=== PATIENT | male | born 1950 | race Caucasian/White ===

== ENCOUNTER → 2017-10-02 | Outpatient (CLI) | payer OTHER | LOC: FIMAGING 13:02 | PROVIDERS: ATTEND Internal Medicine | DX: N44.2 Benign cyst of testis (principal); N50.3 Cyst of epididymis ==

== ENCOUNTER 2018-06-21 08:58 | Observation (INO) | payer OTHER ==
[2018-06-21] MEDS ORDERED: ASPIRIN EC 325 MG TAB PO ONE ×2 (08:59→09:07)
[2018-06-21] MEDS ORDERED: DIAZEPAM 5 MG TAB PO ONE (08:59)
[2018-06-21] MEDS ORDERED: FAMOTIDINE 20 MG TAB PO ONE (08:59)
[2018-06-21] MEDS ORDERED: NS 1,000 ML IV ONE (08:59)
[2018-06-21] MEDS ORDERED: diphenhydrAMINE 25 MG CAP PO ONE ×2 (08:59→09:07)
[2018-06-21] MEDS ORDERED: FAMOTIDINE 20 MG TAB ONE (09:07)
[2018-06-21] MEDS ORDERED: DIAZEPAM 5 MG TAB ONE (09:08)
[2018-06-21 09:30] LABS: PLATELET COUNT 182 10^3/uL (150-400)
[2018-06-21 09:52] LABS: INR 1.08 (0.83-1.16); PROTIME(PATIENT) 13.6 SEC (12.0-15.0)
[2018-06-21] MEDS ORDERED: LIDOCAINE 1% 300 MG/30 ML SDV ONE (10:00)
[2018-06-21] MEDS ORDERED: MIDAZOLAM 2 MG/2 ML VIAL ONE ×3 (10:00→11:21)
[2018-06-21] MEDS ORDERED: fentaNYL 100 MCG/2 ML INJ ONE (10:00)
[2018-06-21] MEDS ORDERED: VERAPAMIL 5 MG/2 ML VIAL ONE (10:00)
[2018-06-21] MEDS ORDERED: IOPAMIDOL (ISOVUE-370) 150 ML BTL IV ONE (10:01)
[2018-06-21] MEDS ORDERED: HEPARIN 10,000 UNIT/10 ML MDV (1,000 UNIT/ML) ONE ×2 (10:01→11:40)
--- NOTE | 2018-06-21 10:30 | PDPROPOC ---
Sedation Plan of Care Sedation Plan of Care: vital signs stable, mental status noted, patient educated of risks, benefits, alternatives, patient can tolerate sedation ASA Classification: ASA 3 Planned drugs: fentanyl, midazolam Mallampati Score: Class 2 Mallampati Reference Image: Patient passed 3-3-2 rule?: Yes
--- NOTE | 2018-06-21 10:30 | PDHPUP ---
History & Physical Update H&P update statement: This history and physical update is based on an assessment of the patient which was completed after admission or registration (within 24 hours), but prior to the surgery/procedure. H&P update: H&P reviewed & patient examined, no change in patient's condition since H&P completed
[2018-06-21] MEDS ORDERED: ETOMIDATE 40 MG/20 ML INJ ONE (10:56)
[2018-06-21] MEDS ORDERED: niCARdipine 25 MG/10 ML VIAL IV ONE (11:36)
[2018-06-21] MEDS ORDERED: ATROPINE SULFATE 1 MG/10 ML SYR ONE (11:38)
[2018-06-21] MEDS ORDERED: IBUPROFEN 200 MG TAB PO PRN (11:48)
[2018-06-21] MEDS ORDERED: PRASUGREL HCL 10 MG TAB ONE (11:49)
[2018-06-21] MEDS ORDERED: OXYCODONE/APAP 5/325 TAB PO PRN (11:50)
[2018-06-21] MEDS ORDERED: NITROGLYCERIN 0.4 MG BTL SL PRN (11:50)
[2018-06-21] MEDS ORDERED: LORazepam 2 MG/ML INJ IVP PRN (11:50)
[2018-06-21] MEDS ORDERED: PRASUGREL HCL 10 MG TAB PO ONE (11:50)
[2018-06-21] MEDS ORDERED: TEMAZEPAM 15 MG CAP PO PRN (11:50)
[2018-06-21] MEDS ORDERED: ONDANSETRON 4 MG/2 ML VIAL IVP PRN (11:50)
[2018-06-21] MEDS ORDERED: ATROPINE SULFATE 1 MG/10 ML SYR IVP PRN (11:50)
[2018-06-21] MEDS ORDERED: HYDROCODONE/APAP 5/325 TAB PO PRN (11:50)
[2018-06-21] MEDS ORDERED: NS 1,000 ML IV SCH (12:00)
--- NOTE | 2018-06-21 12:36 | CPIP ---
[f rep st] INVASIVE CARDIAC PROCEDURE DATE OF PROCEDURE: 06/21/2018 PROCEDURES PERFORMED: 1. Selective coronary angiography. 2. Left heart catheterization. 3. Left ventriculogram. 4. Percutaneous transluminal coronary angioplasty and stent placement of the distal right coronary a rtery with the use of a 4.0 x 12 Synergy drug-eluting stent. Percutaneous transluminal coronary iva oplasty and stent placement of the proximal right coronary artery with the use of a 4.0 x 16 drug-elu ting stent. The distal lesion stenosis was 85% pre-stent implantation with 0% residual post stent. The proximal obstruction was 70% prior to the stent and 0% residual stenosis post stent. In the prox imal lesion there was MELA-1 flow prior to the stent and MELA-3 post. There was MELA-3 flow previous to the first stent in the distal vessel and MELA-1 post stent implantation. Ultimately, the flow in the vessel was MELA-3 throughout and normal. 5. TR band arteriotomy repair. COMPLICATIONS: None. PROCEDURE IN DETAIL: After informed consent was obtained, n.p.o. status was confirmed, the region of the right wrist of the right wrist was cleaned, prepped, and draped in sterile fashion. A plethysmo graphy and trace assisted Burak's test was performed documenting a dual arterial supply to the right index finger. A 5-Canadian sheath was placed to right radial artery with single anterior puncture of t he vessel. The patient then underwent the previously mentioned diagnostic procedure with use of JR4 and L3.5 curve catheters. Standard wire exchange technique was utilized for all catheter exchanges. The right coronary artery is dominant, gives rise to the posterior descending and posterolateral vent ricular branch. There is a 70% obstruction of the proximal RCA and an 85% obstruction of the distal RCA via QCA analysis. There is MELA-3 flow to the distal vessel. The left main coronary lumen is ap proximately 5 mm in size and trifurcates into an LAD, ramus, and circumflex system. The LAD arises i n its usual location, and is approximately 4 mm in size. Distal to the 1st septal branch, there is a 30% obstruction of the LAD proper. There is excellent MELA-3 flow to the distal vessel, which does reach the cardiac apex. The ramus vessel is 1.5 mm in size and relatively long and is free of flow-l imiting disease. It may be a high obtuse marginal vessel, but is certainly a functional ramus vessel giving blood flow to the lateral wall of the heart and the distal obtuse margin. In the proximal ob tuse margin of the heart the left circumflex is 3 mm in size and has a 40% stenosis after the ramus t akeoff. No flow-limiting obstruction is identified. The patient underwent left heart catheterization demonstrating an elevated left ventricular end-diast olic pressure measured 20 mmHg. The patient underwent left ventriculogram in the BONE projection, dem onstrating preserved left ventricular systolic function. Ejection fraction is 60%. There is basal i nferior wall hypokinesis. No significant mitral regurgitation was noted. The visualized portion of the thoracic aorta reveals 3 sinus of Valsalva most consistent with a trileaflet aortic valve. The a carlos is somewhat uncoiled, but is free of en aneurysm or dissection. We turned our attention to t he right coronary artery lesion. A 6-Canadian sheath could not be placed secondary to radial and brach ial artery spasm. We then switched to a 5-Canadian sheath. A 0.014 Media [place] J-wire was used for the g uidewire, and it was advanced under direct fluoroscopic and angiographic guidance past the 2 lesions. The initial lesion was ballooned with a 4.0 x 12 balloon with excellent angiographic results and 0% residual stenosis status post PTCA and stent placement. Placement of the initial stent was complica alfie by no reflow requiring a 2nd stent to be placed in the proximal vessel. At this point, there was at least a 70% obstruction in the proximal vessel with evidence of MELA-1 flow and no reflow to the distal vessel with persistent ST elevation after the 1st stent was implanted. The patient then under went placement of a 2nd stent with initial 70% stenosis and MELA-1 flow with improvement with stent i mplantation and a 5% residual stenosis status post PTCA and stent placement in the proximal right cor onary artery. There was MELA-3 flow to the distal vessel with the use of nicardipine and no evidence of a continued no reflow phenomenon. The patient tolerated the procedure well without immediate com plication and returned to the post cath recovery unit in good and stable condition, where a stat post operative EKG will be obtained. The patient did undergo a TR band arteriotomy repair prior to sunshine gutierrez the crime laboratory analyst. FINAL IMPRESSION: Successful percutaneous transluminal coronary angioplasty and stent placement of t he distal and proximal right coronary artery as noted in the body of this report. The patient will r equire aspirin and Effient to complete 1 year of therapy. I do like to use a full-dose adult aspirin 325 for the 1st month. After that, it would be reasonable to be on a children's dose aspirin at 81 mg along with Effient 10 mg to complete 1 year of dual antiplatelet therapy. The patient should not have any elective surgeries for the first 6 months post stent implantation, and any decision to proce ed with an elective procedure within that time frame or to stop dual antiplatelet therapy before 1 ye ar should involve our office at [phone]. /[id number]/MODL
[2018-06-21] MEDS: PROPRANOLOL HCL 10 MG TAB PO SCH ×2 (13:20→19:22)
[2018-06-21] MEDS ORDERED: MONTELUKAST SODIUM 10 MG TAB PO SCH (18:00)
[2018-06-21] MEDS ORDERED: amLODIPine BESYLATE 5 MG TAB PO SCH (18:00)
[2018-06-21] MEDS: LISINOPRIL 20 MG TAB PO SCH (20:59)
[2018-06-22] MEDS: PROPRANOLOL HCL 10 MG TAB PO SCH ×2 (00:51→06:06)
[2018-06-22 04:33] LABS: PLATELET COUNT 184 10^3/uL (150-400)
[2018-06-22 07:02] VITALS: BP 119/73
[2018-06-22] MEDS ORDERED: PRASUGREL HCL 10 MG TAB PO SCH (09:00)
[2018-06-22] MEDS ORDERED: HYDROCHLOROTHIAZIDE 25 MG TAB PO SCH (09:00)
[2018-06-22] MEDS ORDERED: Fluticasone/Vilanterol [Breo Ellipta 200-25 Mcg Inh] 1 EACH IH SCH (09:00)
[2018-06-22] MEDS ORDERED: ASPIRIN EC 325 MG TAB PO SCH (09:00)
[2018-06-22] MEDS ORDERED: PANTOPRAZOLE SODIUM 40 MG TAB PO SCH (09:00)
[2018-06-22] MEDS: LISINOPRIL 20 MG TAB PO SCH (09:15)
--- NOTE | 2018-06-22 09:55 | ASDISCHSUM ---
Discharge Information Plan Status:Home with No Needs Medically Cleared to Leave:06/22/2018 Discharge Date:06/22/2018 CM D/C Disposition:Home, Routine, Self-Care ADT D/C Disposition:Home, Routine, Self-Care Projected Discharge Date:06/22/2018 Transportation at D/C:Family Discharge Delay Reason: Follow-Up Date:06/22/2018 Discharge Slot: Final Diagnosis: Placement Information Patient Contact Information Contact Name:PAULINA Relationship:Life Partner Address: City:[place] Alternate Phone: [facility]/Zip Code:[place] Email: Financial Information Financial Class:Medicare Advantage Plans Primary Plan Desc:[employer] MEDICARE ADV Primary Plan Number:[id number] Secondary Plan Desc: Secondary Plan Number: Assessment Information LACE LACE Length of stay for Answers: Less than 1 day current admission Acuity / Level of Answers: No Care: Did the patient have an inpatient admission? # of Emergency department Answers: 0 visits in the last 6 months Date Signed: 06/22/2018 09:52 AM Electronically Signed By:Aurora Alamo RN CAGE Questionnaire CAGE Do you feel you ought to Answers: Yes cut down on your drinking or drug use? Do people annoy you by Answers: No criticizing your drinking or drug use? Do you feel guilty about Answers: No your drinking or drug use? 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 Additional Comments 2-3 glasses of wine at dinner (6 oz per serving). Declined resources. 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
--- NOTE | 2018-06-22 11:18 | GDS ---
[f rep st] DISCHARGE SUMMARY DISCHARGE DIAGNOSES: 1. Coronary artery disease, status post stenting to the distal right coronary artery with a 4 x 12 m m Synergy drug-eluting stent for 85% stenosis. Stenting to the proximal right coronary artery with a 4 x 16 mm Synergy drug-eluting stent for 70% stenosis. 2. Hypertension. 3. Premature ventricular contractions occurring in bigeminy. 4. Family history of premature coronary artery disease. HOSPITAL COURSE: For detailed H and P, please see prior dictation. Briefly, the patient is a 67-yea r-old male with a history of hypertension and family history of premature coronary artery disease, wh o presented to our office complaining of palpitations and chest pain. He was identified to have PVCs occurring in bigeminy. He also had a nuclear stress test where the images were normal, but he was f ound to have a [address] shift concerning for ischemia. Ultimately, the decision was made t o proceed with an angiogram, which was performed by Dr. Pedro Luis Danielle on June 21, 2018. He was identif ied to have obstructive disease within the right coronary artery. He had a proximal 70% lesion to th e right coronary artery which was stented with a 4 x 16 mm Synergy drug-eluting stent. There was als o an 85% lesion to the distal right coronary artery which was stented with a 4 x 12 mm Synergy drug-e luting stent. The following morning, the patient denied any discomfort from his wrist where access w as obtained for the angiogram. He denied any chest discomfort. He did note some strong palpitations the evening of his procedure, which had resolved by morning. He was monitored on telemetry and vera ined in normal sinus rhythm. His EKG the following morning revealed normal sinus rhythm without any ST-T wave changes to suggest ischemia. PHYSICAL EXAMINATION: GENERAL: The patient appears in no acute distress. VITALS: Blood pressure 1 19/73, heart rate 67, oxygen saturation 93% on room air. Afebrile. LUNGS: Clear to auscultation. No wheezes, rhonchi, or crackles auscultated. CARDIAC: Regular rate and rhythm, without any signifi cant murmurs, rubs, or gallops appreciated. EXTREMITIES: Right wrist, where access was obtained for the angiogram, was clean and intact without any evidence of infection or hematoma. LABORATORY: BMP within normal limits. CBC within normal limits. Triglycerides 175, total cholester ol 162, LDL 95, HDL 32. DISCHARGE MEDICATIONS: He will begin Effient 10 mg daily, aspirin 325 mg daily and rosuvastatin 10 m g daily. He will continue Singulair 10 mg daily, Zestril 20 mg b.i.d., propranolol 10 mg q.6 hours, omeprazole 20 mg daily, Breo Ellipta daily, amlodipine 5 mg daily, Claritin 10 mg daily, hydrochlorot hiazide 25 mg daily, multivitamin daily, ibuprofen 200 mg t.i.d. p.r.n. He will take as little ibupr ofen as necessary. PLAN: He is currently stable and ready for discharge home. He has been given risk precautions. He is scheduled to follow up with Arleth Doyle PA-C in 1 week. He is aware that he is to remain on aspirin and Effient for a minimum of 1 year. He started rosuvastatin 10 mg daily. The risks and benefits o f the medication have been discussed with him. I will plan to repeat a fasting lipid profile and idania er function tests in 8 weeks. Greater than 30 minutes was spent coordinating the patient's care today. /[id number]/MODL
--- NOTE | 2018-06-22 13:14 | CPEKG ---
Test Reason : OPEN Blood Pressure : / mmHG Vent. Rate : 070 BPM Atrial Rate : 069 BPM P-R Int : 208 ms QRS Dur : 093 ms QT Int : 383 ms P-R-T Axes : 055 027 -01 degrees QTc Int : 414 ms Sinus rhythm Confirmed by Emerson Rodriguez ([id number]) on 06/22/2018 1:14:10 PM Referred By: Pedro Luis Danielle Confirmed By:Emerson Rodriguez
--- NOTE | 2018-06-22 13:15 | CPEKG ---
Test Reason : OPEN Blood Pressure : / mmHG Vent. Rate : 065 BPM Atrial Rate : 065 BPM P-R Int : 208 ms QRS Dur : 095 ms QT Int : 423 ms P-R-T Axes : 057 031 000 degrees QTc Int : 440 ms Sinus rhythm Borderline T abnormalities, inferior leads Confirmed by Emerson Rodriguez ([id number]) on 06/22/2018 1:15:20 PM Referred By: Pedro Luis Danielle Confirmed By:Emerson Rodriguez
--- NOTE | 2018-06-22 13:19 | CPEKG ---
Test Reason : OPEN Blood Pressure : / mmHG Vent. Rate : 066 BPM Atrial Rate : 066 BPM P-R Int : 254 ms QRS Dur : 080 ms QT Int : 375 ms P-R-T Axes : 097 017 -01 degrees QTc Int : 393 ms Sinus rhythm Prolonged NC interval Confirmed by Emerson Rodriguez ([id number]) on 06/22/2018 1:19:15 PM Referred By: Pedro Luis Danielle Confirmed By:Emerson Rodriguez
== END 2018-06-22 10:33 | disposition home or self-care (01) ==
LOC: FCATH 08:58 → F2W 11:54
PROVIDERS: ADMIT Internal Medicine Cardiovascular Disease; ATTEND Internal Medicine Cardiovascular Disease
DX: I25.118 Atherosclerotic heart disease of native coronary artery with other forms of angina pectoris (principal); Z82.41 Family history of sudden cardiac death; Z82.49 Family history of ischemic heart disease and other diseases of the circulatory system; I49.3 Ventricular premature depolarization; M54.5 Low back pain; N40.0 Benign prostatic hyperplasia without lower urinary tract symptoms; G89.29 Other chronic pain; Z86.010 Personal history of colon polyps; I10 Essential (primary) hypertension; K21.9 Gastro-esophageal reflux disease without esophagitis
CPT/HCPCS: 93005; 93458; C1725; C1769; C1874; C1887; C9600; G0378; J1644; J2250; J3010; Q9967; J0461